=== PATIENT | female | born 1990 | race Caucasian/White ===

== ENCOUNTER 2021-05-16 09:42 | Outpatient (REF) | payer BC, SELFPAY ==
[2021-05-16 10:34] LABS: Binax Internal Control QC Valid; Binax Lot number: 9864; Binax Now Covid-19 Ag Negative (Negative)
== END 2021-05-16 09:43 | disposition home or self-care (01) ==
LOC: HO.LAB 09:42
PROVIDERS: Visit Provider Internal Medicine
DX: Z20.822 Contact with and (suspected) exposure to COVID-19 (principal)
CPT/HCPCS: 36415; C9803